=== PATIENT | female | born 1990 | race Asian ===

== ENCOUNTER 2017-12-29 16:37 | Emergency (ER) | payer SELFPAY ==
[2017-12-29 16:41] VITALS: BP 99/65
--- NOTE | 2017-12-29 17:11 | EDM.PDOC ---
Scribed by Kathia Miller 12/29/17 1703 for Tita Marcos NP ED HPI GENERAL MEDICAL PROBLEM - General Chief Complaint: ENT Problem Stated Complaint: bleading nose [id number] Time Seen by Provider: 12/29/17 16:50 Source of Information: Reports: Patient, RN, RN Notes Reviewed History Limitations: Reports: No Limitations - History of Present Illness INITIAL COMMENTS - FREE TEXT/NARRATIVE: Patient presents to ER with complaint of bloody noses. She states she has had one bloody nose about 1 month ago. Also had 2 bloody noses today. Patient states she got a sour stomach after this. Onset: Today Location: Reports: Other (nose) Quality: Reports: Ache Severity: Mild Improves with: Reports: None Worsens with: Reports: None Associated Symptoms: Reports: No Other Symptoms - Related Data Allergies Allergy/AdvReac Type Severity Reaction Status Date / Time No Known Allergies Allergy Verified 12/29/17 16:41 Home Meds: Home Meds . [No Known Home Meds] 12/29/17 [History] Past Medical History - Past Health History Medical/Surgical History: Denies Medical/Surgical History Social & Family History - Family History Family Medical History: Noncontributory - Tobacco Use Smoking Status *Q: Never Smoker Second Hand Smoke Exposure: No - Recreational Drug Use Recreational Drug Use: No ED ROS ENT - Review of Systems Review Of Systems: ROS reveals no pertinent complaints other than HPI. ED EXAM, ENT - Physical Exam Exam: See Below Exam Limited By: No Limitations General Appearance: Alert, WD/WN, No Apparent Distress Eye Exam: Bilateral Eye: Normal Inspection Ears: Normal External Exam, Normal Canal, Hearing Grossly Normal, Normal TMs Nose: Other (left nare has minimal dired blood) Mouth/Throat: Normal Inspection, Normal Gums, Normal Lips, Normal Oropharynx, Normal Teeth Head: Atraumatic, Normocephalic Neck: Normal Inspection, Supple, Non-Tender, Full Range of Motion Respiratory/Chest: No Respiratory Distress, Lungs Clear, Normal Breath Sounds, No Accessory Muscle Use, Chest Non-Tender Cardiovascular: Normal Peripheral Pulses, Regular Rate, Rhythm, No Edema, No Gallop, No JVD, No Murmur, No Rub GI/Abdominal: Normal Bowel Sounds, Soft, Non-Tender, No Organomegaly, No Distention, No Abnormal Bruit, No Mass (Female) Exam: Deferred Rectal (Female) Exam: Deferred Back: Normal Inspection, Full Range of Motion Extremities: Normal Inspection, Normal Range of Motion, Non-Tender, No Pedal Edema, Normal Capillary Refill Neurological: Alert, Oriented, CN II-XII Intact, Normal Cognition, Normal Gait, Normal Reflexes, No Motor/Sensory Deficits Psychiatric: Normal Affect, Normal Mood Skin: Warm, Dry, Intact, Normal Color, No Rash Lymphatic: No Adenopathy Course - Vital Signs Last Recorded V/S: Last Vital Signs Temp 36.8 C 12/29/17 16:39 Pulse 84 12/29/17 16:39 Resp 18 12/29/17 16:39 BP 99/65 12/29/17 16:39 Pulse Ox 100 12/29/17 16:39 - Orders/Labs/Meds Orders: Active Orders 24 hr Category Date Time Status CBC WITH AUTO DIFF [HEME] Stat Lab 12/29/17 17:01 Ordered COMPREHENSIVE METABOLIC PN,CMP [CHEM] Stat Lab 12/29/17 17:01 Ordered INR,PT,PROTHROMBIN TIME [COAG] Stat Lab 12/29/17 17:01 Ordered Departure - Departure Time of Disposition: 17:05 Disposition: Home, Self-Care 01 Condition: Good Clinical Impression: Epistaxis - Discharge Information *PRESCRIPTION DRUG MONITORING PROGRAM REVIEWED*: No *COPY OF PRESCRIPTION DRUG MONITORING REPORT IN PATIENT NAZANIN: No Instructions: Nosebleed, [id number] Forms: ED Department Discharge Additional Instructions: Use vaseline or saline spray to keep the nares moist If you have a nose bleed hold pressure on the nose, do not tip your head back Follow up with your primary care facility I have read and agree with the documentation that has been completed regarding this visit. By signing this record, I attest that the documentation was completed in my physical presence and is an accurate record of the encounter.
== END 2017-12-29 17:10 | disposition home or self-care (01) ==
LOC: DL.ED 16:37
DX: R04.0 Epistaxis (principal)
CPT/HCPCS: 99283